=== PATIENT | male | born 2005 | race Caucasian/White ===

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

== ENCOUNTER → 2023-01-29 | Outpatient (CLI) | payer OTHER, SELFPAY | END | disposition home or self-care (01) | LOC: LABSPEC 15:17 | PROVIDERS: PCP Family Medicine; Referring Provider Surgery; Visit Provider Surgery | DX: T81.89XA Other complications of procedures, not elsewhere classified, initial encounter (principal); W54.0XXA Bitten by dog, initial encounter | CPT/HCPCS: 87070; 87075; 87077; 87186; 87205 ==

== ENCOUNTER 2023-02-09 05:50 | Day surgery (SDC) | payer OTHER, SELFPAY ==
[2023-02-09] VITALS (9 sets, daily range): BP systolic 117–132; BP diastolic 69–78; PULSE 81–112; RESP 16–18; TEMP 36.2–36.6; O2SAT 91–99; BMI 32.9
--- NOTE | 2023-02-09 06:13 | PCM.HP.BLA ---
History and Physical Date of Admission: 02/09/23 HISTORY OF PRESENT ILLNESS 17 year old man initially presented to with a complex dogbite involving the 4th web space between the small finger and ring finger left hand from 12/02/22. Patient had increasing redness and swelling and pain and purulent drainage from the dogbite wound. He was taken to surgery urgently that day, 12/05/22, where he underwent surgical preparation 4th web space at base of small and ring fingers dorsum left hand with incision and drainage and excisional debridement dog bite infection abscess and extensor tenosynovectomy 4th compartment (EDC and EIP tendons) left wrist and extensor tenosynovectomy 5th compartment (EDM tendon) left wrist and decompressive fasciotomy 2nd, 3rd, and 4th dorsal interosseous muscles dorsum left hand for compartment syndrome. Postoperatively he responded to IV antibiotics and Silver dressing changes for wound care. The wounds all healed except the one on the dorsum left hand, radial. He developed hypergranulation tissue and some inflammatory drainage. Patient was getting frustrated and depressed because the last wound is taking a long time to heal. It was recommended to the patient to return to surgery where he will undergo surgical preparation dorsum left hand with excisional debridement nonhealing surgical wound with complex secondary wound closure. 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 Obesity Open wound of left hand due to dog bite Tenosynovitis of hand early RSD left hand nonhealing ulcer dorsum left hand PAST SURGICAL HISTORY History of dental surgery surgical preparation 4th web space at base of small and ring fingers dorsum left hand with incision and drainage and excisional debridement dog bite infection abscess and extensor tenosynovectomy 4th compartment (EDC and EIP tendons) left wrist and extensor tenosynovectomy 5th compartment (EDM tendon) left wrist and decompressive fasciotomy 2nd, 3rd, and 4th dorsal interosseous muscles dorsum left hand for compartment syndrome - 12/05/22 MEDICATIONS Bactrim DS Zoloft Percocet Procardia XL ALLERGIES [place] FAMILY HISTORY Mother Anxiety and depression HLD (hyperlipidemia) Father Anxiety and depression Grandmother Heart disease ?? ? Maternal grandmother SOCIAL HISTORY Smoking Status:? Never smoker alcohol intake:? never substance use type:? does not use REVIEW OF SYSTEMS General - Denies fever, fatigue, and weight loss. Eyes - Denies cataracts and glaucoma. ENT - Denies nasal congestion and sore throat. Endocrine - Denies excessive thirst and urination. Skin - Denies suspicious lesions and skin cancer.? Has recent dog bite 4th web space at base of small finger and ring finger left hand. Musculoskeletal - Denies joint pain, joint stiffness, weakness of muscles and joints, back pain, and arthritis.? Neuro - Denies headaches. Cardiovascular - Denies chest pain, fatigue, and shortness of breath with exertion. Psych - Denies anxiety and depression. Respiratory - Denies chronic cough and shortness of breath. Gastrointestinal - Denies nausea, vomiting, diarrhea, and constipation. Hematologic - Denies abnormal bruising and bleeding. Genitourinary - Denies hematuria and urinary frequency. PHYSICAL EXAMINATION General - Alert and Oriented. HEENT - PERRL. EOMI.? Throat is clear. Neck - Supple and nontender.? No cervical adenopathy. Lungs - Clear to auscultation. Heart - Regular rate and rhythm. Abdomen - Soft and nondistended. Extremities - FROM right upper extremity. No axillary adenopathy.? Radial pulses are palpable.? Patient is right hand dominant.? Has healed dogbite wound dorsum left hand, ulnar. On the radial side of the dorsum left hand is a persistent ulceration. Measures 1.2 x 0.7 x 0.2 cm. Palpable tendon seen. Excursion of the tendon is unimpeded. Swelling has increased.? Reassured them that the increased swelling is due to him starting OT.? He can actively flex the fingers at the MP joint but less than 90 degrees secondary to swelling and pain. Showed him how to passively flex the fingers by using his right hand. ? He can make a fist but it is a loose fist.? His skip locator strength has decreased since falling off the couch a week ago which increased his pain. Neuro - CN II-XII grossly intact. Psych - Normal mood and affect. ASSESSMENT (1) Dog bite: (2) Nonhealing dog bite ulcer dorsum left hand, radial. (3) History of abscess left hand. (4) History of extensor tenosynovitis left wrist. (5) History of compartment syndrome dorsal interosseous muscles left hand. PLAN Healing of these dog bite wounds were progressing until recently when the ulnar wound on dorsum left hand healed but not the radial wound. There is scar at the edges of the ulcer that is curling inward which makes it difficult to heal. This was caused by the inflammatory drainage from the dog bite. It was recommended to proceed with operative intervention with surgical preparation dorsum left hand with excisional debridement nonhealing surgical wound with complex secondary wound closure. Surgery will be done under general anesthesia on an outpatient basis. Tissue debrided will be sent to Pathology for analysis to rule out carcinoma and to Microbiology for culture. A positive culture will necessitate antibiotic therapy. Patient was informed of the risks and complications of the procedure including alternatives to surgery.? These were discussed with the patient personally.? Patient voices understanding and wishes to proceed.? Some of the risks and complications were included in a form from the [employer].? Some of the risks and complications that were discussed included but were not inclusive of failure to diagnose including symptom relief, pain, infection, numbness, stiffness, loss of digit, RSD (CRPS), need for further surgery, contracture, and wound healing problems. Potential risks and complications included but not inclusive of bleeding, infection, seroma, hematoma, bruising, swelling,loss of sensation to skin, , wound breakdown, need for wound care, poor scarring, poor aesthetic outcome, intra operative cardiac or neurologic events, DVT, PE, and reaction to anesthesia.
[2023-02-09] MEDS: Lactated Ringers 1,000 ML 15 ML IV ×2 (06:21→08:27)
--- NOTE | 2023-02-09 07:30 | UL_PTH ---
PATIENT: MARIELENA JAMES [place] [facility] [id number] AGE/SX: 17/M ROOM: RE02/09/[address]: Dr. Mikhail Paul MD : 2005 BED: DIS: 02/09/2023 SPEC #: [id number] RECD: 02/09/23 11:44 STATUS: LORENZO BOWIERoas #: [id number] NIGEL: 02/09/23 07:[address]: Mikhail Paul DEPT: SURGICAL PATHOLOGY RECD BY: Yovani Apple ENTERED: 02/09/23 12:12 SP TYPE: ULCER OTHR DR: Dr. Shakira Galloway MD Tissues: ULCER Procedures: Surgery Specimen Level III HEADER OPERATION: Surgical preparation dorsum left hand, excisional debridement PRE-OP DIAGNOSIS: Nonhealing dog bite ulcer dorsum left hand, radial TISSUE SUBMITTED: Nonhealing dog bite ulcer left hand MICROSCOPIC DIAGNOSIS Dog bite ulcer left hand, excision: Focal ulceration, acute and chronic inflammation and granulation tissue reaction. SJ:adithya 02/12/2023 MICROSCOPIC DESCRIPTION Slides are reviewed. GROSS DESCRIPTION Received in fixative is one container labeled with the patient's name and designated nonhealing ulcer left hand. The specimen consists of multiple irregular fragments of skin and soft tissue that in aggregate measure 6.0 x 2.0 x 0.5 cm. The larger fragment contains skin with a central defect measuring 2.2 cm in greatest dimension. No mass lesions are identified. Hospitality Manager sections are submitted in one cassette. / AM:adithya 02/09/2023 TC:2 CPT: 08405
[2023-02-09] MEDS: Lidocaine 1% /Epi 1:100 (20ml) 20 ML Vial (08:07)
[2023-02-09] MEDS: BACITRACIN/POLYMYXIN B 15 GM Tube 1 APPLIC (10:19)
--- NOTE | 2023-02-09 10:58 | PCM.OPRPT ---
Problems Associated Problem List Diagnoses (1) Dog bite: (2) Non-pressure chronic ulcer of skin of other sites with muscle involvement without evidence of necrosis: (3) Extensor tenosynovitis of left wrist: (4) Open injury of sensory branch of radial nerve: (5) History of hand surgery: Report of Operation Date of Procedure: 02/09/23 Pre-Operative Diagnosis: 1. Dog bite. 2. Nonhealing dog bite ulcer dorsum left hand, radial. 3. History of abscess left hand. 4. History of extensor tenosynovitis left wrist. 5. History of compartment syndrome dorsal interosseous muscles left hand. Post-Operative Diagnosis: 1. Dog bite. 2. Nonhealing dog bite ulcer dorsum left hand, radial. 3. History of abscess left hand. 4. History of extensor tenosynovitis left wrist. 5. History of compartment syndrome dorsal interosseous muscles left hand. 6. Extensive extensor tenosynovitis 4th compartment left hand (EDC tendon to index finger and long finger and EIP tendon). 7. Superficial sensory branch radial nerve laceration dorsum left hand. Surgery/Procedure Performed:: 1. Surgical preparation dorsum left hand, radial, with excisional debridement nonhealing dog bite ulcer. 2. Extensive extensor tenosynovectomy 4th compartment left hand (EDC tendon to index finger and long finger and EIP tendon). 3. Epineural repair superficial sensory branch radial nerve laceration dorsum left hand. 4. 7 cm delayed complex secondary wound closure. Description of Surgical Findings:: 17 year old man initially presented to? with a complex dogbite involving the 4th web space between the small finger and ring finger left hand from 12/02/22.? ? Patient had increasing redness and swelling and pain and purulent drainage from the dogbite wound.? He was taken to surgery urgently that day, 12/05/22, where he underwent surgical preparation 4th web space at base of small and ring fingers dorsum left hand with incision and drainage and excisional debridement dog bite infection abscess and extensor tenosynovectomy 4th compartment (EDC and EIP tendons) left wrist and extensor tenosynovectomy 5th compartment (EDM tendon) left wrist and decompressive fasciotomy 2nd, 3rd, and 4th dorsal interosseous muscles dorsum left hand for compartment syndrome.? Postoperatively he responded to IV antibiotics and Silver dressing changes for wound care.? The wounds all healed except the one on the dorsum left hand, radial.? He developed hypergranulation tissue and some inflammatory drainage.? Patient was getting frustrated and depressed because the last wound is taking a long time to heal. It was recommended to the patient to return to surgery where he will undergo surgical preparation dorsum left hand with excisional debridement nonhealing surgical wound with complex secondary wound closure. Patient was informed of the risks and complications of the procedure including alternatives to surgery. These were discussed with the patient personally. Patient voices understanding and wishes to proceed. Some of the risks and complications were included in a form from the [employer]. Potential risks and complications included but not inclusive of bleeding, infection, seroma, hematoma, bruising, swelling, loss of sensation to skin, partial or complete loss of skin flap, wound breakdown, need for wound care, poor scarring, poor aesthetic outcome, intra operative cardiac or neurologic events, DVT, PE, and reaction to anesthesia. Total tourniquet time #1 - 120 minutes. Interval in between the use of the tourniquet - 34 minutes. Total tourniquet time #2 - 9 minutes. Romulo absorbable hemostat, (I used one vial). Reference Number - [id number]. Lot Number - [id number]. Expiration - September 16, 2027. Surgeon: Mikhail Paul MD lifestyle director: None Type of Anesthesia: General Anesthesiologist: Melo Tellez MD and Donavan Kruger CRNA Specimen's removed: Nonhealing dog bite ulcer dorsum left hand to Pathology and Microbiology. Drains: None. Estimated Blood Loss (mL): 150. Description of Procedure: Patient was taken to OR in supine position and was placed under general anesthesia. The left hand was prepped and draped in the usual fashion. SCD's were placed for DVT prophylaxis. Perioperative antibiotics were given intravenously. The left hand was elevated and wrapped with an Esmarch bandage. The tourniquet was elevated to 250 mmHg. Using xylocaine with epinephrine, the nonhealing dog bite ulcer dorsum left hand, radial, was infiltrated. After waiting 5 minutes for the anesthetic to take effect, I proceeded with surgical preparation of the nonhealing dog bite ulcer dorsum left hand, radial, by excising and debriding the surrounding scar in a longitudinal elliptical fashion. The scar tissue was very dense. There was extensive extensor tenosynovitis involving the EDC tendon to the index finger and long fingers and EIP tendon. An extensive extensor tenosynovectomy was performed from the wrist up toward the MP joints involving these three extensor tendons. The extensive nature and increased density of the scarring can be indicative of the severity of the recent dog bite infection. I proceeded with excising and debriding this dense scar tissue in a longitudinal fashion. There are no tissue planes availability to dissect out the superficial sensory branch of the radial nerve and preserve it. By being deliberate in my dissection would limit any injury to the sensory nerve. I finally dissected out the sensory nerve and noted it was lacerated. This was the proximal end. I then dissected distally to that sensory branch and located the distal end of the superficial sensory branch radial nerve. The nerve ends came together easily with no tension. An epineural repair of this nerve laceration was done using 8-0 Nylon simple interrupted sutures. I used 8 sutures. There is an increased risk of painful neuroma if the laceration is not recognized and repaired. The wound was irrigated with Irrisept 0.05% Chlorhexidine and followed with saline irrigation. I then sprayed Romulo absorbable hemostat into the wound to minimize seroma formation. The tourniquet was released at 120 minutes. I have to wait 20 minutes before re-inflating it if necessary. During this time, I place gauze in the wound and wrapped with the Esmarch bandage to achieve hemostasis. Looking at the debrided tissue, I some of it and sent it to Microbiology for culture. A positive culture will necessitate antibiotic therapy. The remaining tissue was sent to Pathology for analysis to rule out carcinoma. I started to close the wound starting distally and moving more proximally. There was some oozing which was controlled with electrocautery initially, but it persisted although much less. I then elevated the left hand and placed an Esmarch bandage around the left hand and wrist. The tourniquet was once again elevated to 250 mmHg. The interval between Tourniquet #1 and Tourniquet #2 was 34 minutes. This allowed me to finish closing the wound unimpeded. Before the last few sutures were placed, I sprayed the remaining Romulo back into the wound. The wound was closed in a layered fashion with 3-0 Monocryl interrupted sutures for the deep dermis and subcutaneous tissue. The skin was approximated with 4-0 Prolene simple interrupted and vertical mattress interrupted sutures. The length of the delayed complex secondary wound closure was 7 cm. The tourniquet was once again released after 9 minutes. I elevated the left hand and held compression on the incision while the dressing was applied and concurrently it allowed compression hemostasis. I used Bactroban ointment over the suture lines followed by 4x4 gauze and a 2 inch Cheryl wrap. This was followed with a compression lenny wrap. Patient tolerated the procedure well and was sent to PACU in satisfactory condition. Patient will be sent home on antibiotics and pain medication. He will keep his left hand elevated. There will be no lifting with his left hand. Keep the operative dressing on until seen in the office for dressing removal. Patient will followup in a week for a wound check and for discussion of the pathology report and for discussion of the Microbiology report. A positive culture will necessitate antibiotic therapy. I will remove the sutures in 2-3 weeks. Because of this surgery, I will have the patient wait a week before returning to see the Occupational Therapist and continue range of motion exercises, strengthening, and edema management. Because of the sensory nerve repair, aggressive range of motion will be limited. Some motion is good to minimize joint stiffness, but want to allow the time for the sensory nerve repair to heal. In the meantime, he can maintain the integrity of his joints by doing passive range of motion to his joints especially the MP joint. Keep his wrist in neutral position or slightly extended to minimize tension on the nerve repair. Grafts/Implants Used: Romulo Procedure Start Time: 08:07 Procedure Stop Time: 10:49 Complications None. Admit VTE Documentation VTE Present on Admission: No VTE Mechan Device Prophylaxis: SCD's VTE Pharm Prophylaxis ordered?: No Addendum Addendum: Surgery Charges CPT - 41875 ICD-10 - W54.0xxA, L98.495, M65.832, S54.20xA, Z98.890 13003 M65.832, W54.0xxA, L98.495, S54.20xA, Z98.890 00087 M65.832, W54.0xxA, L98.495, S54.20xA, Z98.890 96389 S54.20xA, W54.0xxA, L98.495, M65.832, Z98.890 [id number] W54.0xxA, L98.495, M65.832, S54.20xA, Z98.890
--- NOTE | 2023-02-09 11:46 | EKG12_ITS ---
Test Reason : PACU Blood Pressure : / mmHG Vent. Rate : 104 BPM Atrial Rate : 104 BPM P-R Int : 144 ms QRS Dur : 092 ms QT Int : 328 ms P-R-T Axes : 039 056 041 degrees QTc Int : 431 ms Sinus tachycardia Otherwise normal ECG No previous ECGs available Confirmed by KAMRAN MANN, DAYDAY ([id number]), photo editor NOAH MCGRAW ([id number]) on 02/12/2023 2:41:19 PM Referred By: Mikhail Paul Confirmed By:DAYDAY ANDREW MD
--- NOTE | 2023-02-09 12:13 | DCINST_ITS ---
Discharge Instructions Diet Discharge Diet: No restrictions and - (encourage nutritional supplementation with protein to help the healing process.) Activity Discharge Activity: May Not Drive (until seen in the office.) and May Shower (place plastic bag over left hand when showering. No lifting with left hand.) Return to work on:: 02/16/23 (tentative. ONE HANDED WORK ONLY. No lifting with left hand.) May shower in (days): 1 (wear plastic bag over left hand when showering.) Weight Bearing Status: Weight bearing as tolerated Lifting Restrictions: no lifting with left hand. Keep extremity elevated above heart level: Left Arm Dressing / Incision Call your doctor if your incision/area has: Continuous Slow Oozing, Sudden Increased Bleeding, Increased Pain/ Swelling, Increased Redness, Foul Smelling Discharge and Swelling at the incision site Call your doctor if you observe: Fever of 101 or Higher, Coldness, Increased Pain, Shortness of breath, Chest pain, Calf discomfort and Uncontrolled pain Suture Line Care: - (after operative dressing removed in the office, may apply antibiotic ointment to suture line daily.) Change Dressing in: do not change dressing (the operative dressing will be changed in the office.) Remove Dressing in: do not remove dressing (the operative dressing will be removed in the office.) Cleanse incision/area with: - (wear plastic bag over left hand when showering.) Follow Up Care Please Follow Up With: Mikhail Paul MD When: , february 15, 2023 at 1130am. call [phone] for questions. Test Results: Test results from this visit will be discussed in further detail at your follow- up appointment, if applicable. Discharge Plan Admission Primary Reason for Your Visit: debridement dog bite ulcer left hand with closure Attending Provider: Mikhail Paul Primary Care Provider: Shakira Galloway Discharge Orders/Prescriptions Prescriptions: New sulfamethoxazole-trimethoprim [Bactrim DS] 800-160 mg tablet 1 tab PO BID Qty: 20 2RF L.acidoph,saliva-B.bif-S.therm [Acidophilus Probiotic Blend] 175 mg capsule 1 cap PO DAILY Qty: 30 0RF oxycodone-acetaminophen [Percocet] 5-325 mg tablet 1 tab PO Q6H PRN (Reason: pain (scale score 7-10)) 7 Days Qty: 28 0RF Rx Instructions: 28 tabs (twenty-eight) Continued L.acidoph,saliva-B.bif-S.therm [Acidophilus Probiotic Blend] 175 mg capsule 1 cap PO DAILY Qty: 30 0RF nifedipine [Procardia XL] 30 mg tablet extended release 24hr 30 mg PO DAILY Qty: 30 1RF Rx Instructions: Take BP before taking the medication. If systolic BP (top number) < 110 mmHg then do not take the medication that day. cetirizine [Zyrtec] 10 mg Tablet 10 mg PO DAILY polyethylene glycol 3350 17 gram powder in packet 17 g PO DAILY PRN (Reason: Constipation) sertraline 50 mg tablet See Rx Instructions .ROUTE .COMPLEX Qty: 30 2RF Dose Instruction: take 1 tablet by mouth once daily Rx Instructions: take 1 tablet by mouth once daily Referrals / Follow Up: Shakira Galloway MD [Primary Care Provider] - Disposition Disposition (needs filled in before D/C Order can be placed): Home, Self Care
== END 2023-02-09 13:14 | disposition home or self-care (01) ==
LOC: SDC 05:51 → AC 05:52
PROVIDERS: PCP Family Medicine; Referring Provider Surgery; Visit Provider Surgery
PROC: (CPT 64834; principal; 2023-02-09 07:15)
DX: L98.495 Non-pressure chronic ulcer of skin of other sites with muscle involvement without evidence of necrosis (principal); M65.842 Other synovitis and tenosynovitis, left hand; S54.22XA Injury of radial nerve at forearm level, left arm, initial encounter; S61.452A Open bite of left hand, initial encounter; M65.832 Other synovitis and tenosynovitis, left forearm; W54.0XXA Bitten by dog, initial encounter; Z79.899 Other long term (current) drug therapy
CPT/HCPCS: 64834; 15004; 25118; 13160; 01810; 87070; 87075; 87102; 87176; 87205; 87206; 88304; 93005; J7120; J0295; J2405

== ENCOUNTER 2023-03-26 17:00 | Outpatient (RCR) | payer OTHER, SELFPAY ==
--- NOTE | 2023-01-23 07:39 | HP.OTEVAL ---
Patient's Visit Information MARIELENA JAMES is a 17 year old M, referred to Occupational Therapy by Dr. Mikhail Paul MD, with a diagnosis of right hand Cellulitis. Date of Evaluation: 01/22/23 Occupational Therapist: Shari Siddiqui, OTR/oJn, CHT - Subjective This 17 year old male was seen for OT eval with dx of left handed dog bite- pt states DOI was December 04 and he then had sx on December 01 due to infection. orders were for pt to schedule after December 25, 2022 and pt arrives January 22 for initial eval due to scheduling. Pt works for the [employer] and needed apt after 5pm. Pt arrives with his father and hand with light bandage and lenny wrap over hand. pt denies pain states only when dr. epps at wound does it hurt. Pt states he feels he is doing OK. would like to use his hand for work tasks and swim. pt states Dr. Paul has him on 20# lift restriction. - Pain left hand 3 Pain Intensity Range: 5 - ROM MP: left LF -10/65 RF -10/ 55 MF -10/55 left -10/55 PIP: left 110 mf 110 rf 110 LF 90 DIP: left 60 mf 60 RF 35 LF 65 ROM Comments: pt demo slight tightness of MCP and PIP (straight fisting) motion - Strength Bioinformatics Research Technician: right 110 left 35 Lateral Pinch: right 12# left 12# Tripod Pinch: right 14# left 16# Strength Comments: pt demo weakness of left brand marketing manager strength - Sensation Sensation Comments: around open wound - Quick DASH-Disab of Arm,Shoulder& Hand Quick DASH Score: 40.9075 - Goals Goal:Daily scar massage when approriate: Yes Goal:ROM equal to unaffected hand: Yes Goal:Bioinformatics Research Technician/Pinch strength at least 75% of unaffected hand: Yes Goal:No pain with affected hand use: Yes Goal:Full use of affected hand in daily activities including: Yes Goal:Decrease scar hypersensitivity: Yes - Rehabilitation General Assessment: pt arrives s/p 7 weeks to OT services. Surgery/Procedure Performed:: 1. Surgical preparation 4th web space at base of small and ring fingers dorsum left hand with incision and drainage and excisional debridement dog bite infection abscess. 2. Extensor tenosynovectomy 4th compartment (EDC and EIP tendons) left wrist. 3 Extensor tenosynovectomy 5th compartment (EDM tendon) left wrist. 4. Decompressive fasciotomy 2nd, 3rd, and 4th dorsal interosseous muscles dorsum left hand for compartment syndrome. pt is demo with open wound and weakness of left brand marketing manager limiting use of left UE with ADLs and IADLs. pt would benefit from skilled OT services 1-2 x week for 6 weeks to strength, improve pts ROM. mtg scar tissue and work on wound closure. pt and pts father demo understanding and and agree to POC. Rehabilitation Potential: Good - Anticipated Interventions A/AAROM/PROM, Strengthening, Scar Care, Desensitization, Sensory Retraining, Wound Care, Modalities, Joint Protection/Energy Conservation, Ergonomic Education, Fine Motor Coord/Jose Francisco, Education re assistive Equipment, Education re Diagnosis, Home Program - Visit Plan Frequency: 1-2x /Week Duration: 6 Weeks TEXT: Thank you for the opportunity to evaluate your patient. For Medicare and Medicare HMO plans, please review the plan of care and approve it. It will need to be FAXED BACK to us at [phone] for Medicare purposes. Please let me know if there are questions or concerns regarding this plan of care. Physician Signature: Date:
--- NOTE | 2023-04-18 15:53 | HP.OTDCSUM ---
Discharge Summary D/C Summary: It has been my pleasure to treat MARIELENA JAMES under orders from Dr. Mikhail Paul MD, for the diagnosis of right hand Cellulitis for a total of 10 visit(s). Please see the following information for a summary of their discharge status. 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 Pt has gained about equal strength on left compared to right hand. Discussed scar management with patient and patient dad - agreeable to plan and discharge. Recommended to continue to follow Dr's guidelines and progressively increase weight strengthening. Will discharge patient at this time. D/C Information Discharge Comments: Pt seen for 10 skilled OT visits. Pt has gained about equal strength on left compared to right hand. Discussed scar management with patient and patient dad - agreeable to plan and discharge. Recommended to continue to follow Dr's guidelines and progressively increase weight strengthening. Will discharge patient at this time. d/c sentence: If there are questions or concerns regarding this patient's occupational therapy, please fell free to call me at [phone]. Thank you for the referral of this patient. Sincerely, Shari Siddiqui, OTR/L, CHT
== END 2023-03-26 19:00 | disposition home or self-care (01) ==
LOC: OT 17:00
PROVIDERS: PCP Family Medicine; Referring Provider Surgery; Visit Provider Surgery
DX: S61.452D Open bite of left hand, subsequent encounter (principal); L03.114 Cellulitis of left upper limb; L02.512 Cutaneous abscess of left hand; M65.832 Other synovitis and tenosynovitis, left forearm; T79.A12D Traumatic compartment syndrome of left upper extremity, subsequent encounter
CPT/HCPCS: 97110; 97140; 97165; 97530

== ENCOUNTER 2024-05-24 11:00 | Emergency (ER) | payer OTHER, SELFPAY ==
[2024-05-24 11:01] VITALS: BP 132/90; PULSE 92; RESP 16; TEMP 36.5; O2SAT 99; BMI 32.8
[2024-05-24] MEDS: Lidocaine 1% (20 ml mdv) 20 ML Vial INFILT (11:25)
--- NOTE | 2024-05-24 11:31 | EX.ED.DYSGE1 ---
HPI History of Present Illness Chief Complaint: Wound Detail of Chief Complaint: Infected pilonidal cyst Informant: patient and parent Onset/Context/Timing Onset: Days and Weeks Context: Sudden Onset Timing: Continuous Quality: Patient was seen twice at urgent care and placed on antibiotics Location: Gluteal crease Current Severity: Mild Maximum Severity: Moderate Worsened by: Sitting and palpation Relieved by: Nothing Associated Symptoms Associated Symptoms: Initially bloody drainage now purulent drainage since last evening Narrative Narrative: Patient is a 18-year-old. He was diagnosed with a low nidal cyst at urgent care. He was placed on trimethoprim/sulfamethoxazole and cephalexin. He was seen twice. His mother contacted Dr. Birch. He presented to the emergency room and asked to be paged when the patient arrives. Patient denies fever, chills night sweats. Patient denies allergy to antibiotics or pain medicine. Patient denies a traumatic fever, SBE or heart murmur. Patient denies GI symptoms. Patient has no other symptoms. 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 Abscess of left hand Allergic rhinitis Obesity Cellulitis of hand, left Home Medications ?Medication ?Instructions ?Recorded ?Last Taken ?Type cetirizine 10 mg tablet (Zyrtec) 10 mg PO DAILY allergies 12/04/22 12/04/22 History nifedipine 30 mg tablet,extended 30 mg PO DAILY #30 tabs 01/29/23 Unknown Rx release 24 hr (Procardia XL) sertraline 50 mg tablet See Rx Instructions .Route 01/30/23 Unknown Rx .COMPLEX #30 tabs L.acidophil,salivari-Bifido 1 cap PO DAILY #30 caps 02/09/23 Unknown Rx bifidum-Strep thermoph 175 mg capsule (Acidophilus Probiotic Blend) oxycodone-acetaminophen 5 mg-325 1 tab PO Q6H PRN pain (scale score 02/09/23 Unknown Rx mg tablet (Percocet) 7-10) 7 days #28 tabs gabapentin 100 mg capsule See Rx Instructions PO BID 15 days 02/15/23 Unknown Rx #45 caps hydrocodone-acetaminophen 5-325mg 1 tab PO Q6H PRN PRN Pain 3 days 05/24/24 Unknown Rx 5mg-325mg #10 TABLETS Allergy/AdvReac Type Severity Reaction Status Date / Time pollen extracts (pollens) AdvReac Other Verified 05/24/24 11:03 Family History Mother Anxiety and depression HLD (hyperlipidemia) Hypertension Father Anxiety and depression Heart disease Grandmother Heart disease Maternal grandmother Surgical History History of myringotomy History of hand surgery History of incision and drainage History of dental surgery Social History household members: family Smoking Status: Never smoker alcohol intake: never substance use type: does not use ROS ROS ED Constitutional Constitutional ED: Denies chills, fever(s), subjective or sweats Cardiovascular Cardiovascular: Denies chest pain or palpitations Respiratory/Chest Respiratory/Chest: Denies cough or dyspnea Gastrointestinal Gastrointestinal: Denies nausea or vomiting Integumentary Reports abscess and rash Hematologic/Lymphatic Hematologic/Lymphatic: Reports systems reviewed and no addt'l complaints, except as documented EXAM Physical Exam Const Vital Signs: 05/24/24 11:01 Temperature 97.7 F L Temperature Source Oral Pulse Rate 92 Respiratory Rate 16 Blood Pressure 132/90 H Blood Pressure Mean 104 Pulse Ox 99 Oxygen Delivery Method Room Air Positive well nourished and well developed General Appearance ED: well developed and NAD HEENT Reports moist mucous membranes HEENT Narrative: Head is atraumatic normocephalic. Eyes PERRL and EOMs intact bilaterally Resp normal respiratory effort and clear to auscultation bilaterally Cardio regular rate, regular rhythm, S1 normal heart sound, S2 normal heart sound and no murmurs GI GI Narrative: Patient has an infected pilonidal cyst. There is evidence that it did spontaneously open. The area is fluctuant and erythematous. Extremity normal to inspection Neuro oriented x3 and CN's II-XII intact bilaterally Sensorium / Orientation: alert Psych mental status grossly normal Skin Skin Narrative: Infected pilonidal cyst MDM MDM MDM Narrative Medical decision making narrative: Patient has infected pilonidal cyst. Plan is I&D. Since mother contact Dr. Birch and he asked to be paged he was. He will perform I&D. He requested home-going to read change packing daily and follow-up in 1 week. Treatment and Re-Evaluation :: I&D performed by Dr. Birch. Discharge Plan Triage Chief Complaint: Wound ED Provider: Mio Hayes Dx/Rx/DC Orders Clinical Impression: Infected pilonidal cyst, Elevated blood-pressure reading without diagnosis of hypertension Instructions: ED Pilonidal Cyst Infec I&D Prescriptions: New hydrocodone-acetaminophen 5-325 mg tablet 1 tab PO Q6H PRN PRN (Reason: Pain) 3 Days Qty: 10 0RF No Action nifedipine [Procardia XL] 30 mg tablet extended release 24hr 30 mg PO DAILY Qty: 30 1RF Rx Instructions: Take BP before taking the medication. If systolic BP (top number) < 110 mmHg then do not take the medication that day. gabapentin 100 mg capsule See Rx Instructions PO BID 15 Days Qty: 45 1RF Rx Instructions: 100 mg orally in the morning and 300 mg at bedtime. cetirizine [Zyrtec] 10 mg Tablet 10 mg PO DAILY L.acidoph,saliva-B.bif-S.therm [Acidophilus Probiotic Blend] 175 mg capsule 1 cap PO DAILY Qty: 30 0RF oxycodone-acetaminophen [Percocet] 5-325 mg tablet 1 tab PO Q6H PRN (Reason: pain (scale score 7-10)) 7 Days Qty: 28 0RF Rx Instructions: 28 tabs (twenty-eight) sertraline 50 mg tablet See Rx Instructions .ROUTE .COMPLEX Qty: 30 2RF Dose Instruction: take 1 tablet by mouth once daily Rx Instructions: take 1 tablet by mouth once daily Primary Care Provider: Jarod Burgos Referrals: Justen Birch MD [Med Staff - Active Staff] - 1 Week Jarod Burgos MD [Primary Care Provider] - Activity Restrictions/Additional Instructions: 1. Change packing daily 2. Call for appoint to be seen in 1 week Print Language: Estonian Disposition Disposition: Home, Self Care
--- NOTE | 2024-05-24 11:41 | EX.PCM.CON.S ---
Assessment & Plan Assessment/Plan (1) Infected pilonidal cyst: PLAN: The patient has an infected pilonidal cyst. I recommended an incision and drainage to the patient. I discussed the risks of bleeding and infection. I did perform incision and drainage of this area and there was copious purulent drainage. It was cultured. He will stay on his cephalexin and Bactrim and the ER doctor will order some pain medication. I instructed him to continue packing changes at least daily and after every bowel movement and sitz bath. He will follow-up with me in 1 week. Procedure documentation The pilonidal area was prepped and draped in usual sterile fashion. The area was injected with local anesthetic. An incision was made with a scalpel and deepened to the cyst. There was purulent dark drainage. It was cultured. The area was then packed with quarter inch gauze. The area was bandaged. He tolerated the procedure well. Justen Birch MD Pager: [facility] [address] [place] [address], [address] [place] [address] Office: HPI Consult Data Date of Consult: 05/24/24 HPI Narrative HPI Narrative: MARIELENA JAMES, is a 18 M who presents with pilonidal abscess. The patient saw urgent care and they started him on antibiotics yesterday but the pain is getting worse so he came into the emergency room. He denies fevers or chills. Denies nausea or vomiting. He has never had a pilonidal infection in the past. 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 Abscess of left hand Allergic rhinitis Obesity Cellulitis of hand, left Home Medications ?Medication ?Instructions ?Recorded ?Last Taken ?Type cetirizine 10 mg tablet (Zyrtec) 10 mg PO DAILY allergies 04/17/23 04/17/23 History nifedipine 30 mg tablet,extended 30 mg PO DAILY #30 tabs 01/29/23 Unknown Rx release 24 hr (Procardia XL) sertraline 50 mg tablet See Rx Instructions .Route 01/30/23 Unknown Rx .COMPLEX #30 tabs L.acidophil,salivari-Bifido 1 cap PO DAILY #30 caps 02/09/23 Unknown Rx bifidum-Strep thermoph 175 mg capsule (Acidophilus Probiotic Blend) oxycodone-acetaminophen 5 mg-325 1 tab PO Q6H PRN pain (scale score 02/09/23 Unknown Rx mg tablet (Percocet) 7-10) 7 days #28 tabs gabapentin 100 mg capsule See Rx Instructions PO BID 15 days 02/15/23 Unknown Rx #45 caps Allergy/AdvReac Type Severity Reaction Status Date / Time pollen extracts (pollens) AdvReac Other Verified 05/24/24 11:03 Family History Mother Anxiety and depression HLD (hyperlipidemia) Hypertension Father Anxiety and depression Heart disease Grandmother Heart disease Maternal grandmother Surgical History History of myringotomy History of hand surgery History of incision and drainage History of dental surgery Social History household members: family Smoking Status: Never smoker alcohol intake: never substance use type: does not use Physical Exam Const alert and oriented x3 HEENT normocephalic Eyes PERRL Lymph Lymphatic: no lymphadenopathy noted Cardio Rate: regular rate Rhythm: regular rhythm Extremity normal to inspection Skin Wound Narrative: Patient has an infected pilonidal cyst with warmth and erythema in the pilonidal area Psych mental status grossly normal
[2024-05-24 12:23] VITALS: BP 148/62; PULSE 72; RESP 14; TEMP 36.6; O2SAT 100
== END 2024-05-24 12:24 | disposition home or self-care (01) ==
PROVIDERS: Emergency Provider Emergency Medicine; PCP Family Medicine; Visit Provider Emergency Medicine
DX: L05.91 Pilonidal cyst without abscess (principal); R03.0 Elevated blood-pressure reading, without diagnosis of hypertension
CPT/HCPCS: 10060; 10080; 87070; 87077; 87186; 87205; 99282